=== PATIENT | male | born 1955 | race African-American/Black ===

== ENCOUNTER 2017-02-09 12:31 | Inpatient (IN) | payer MEDICAID ==
[~2017-02-09] VITALS: Ht 185.4 cm; Wt 151.5 kg
[2017-02-09 14:40] LABS: BASOPHILS % 0.7 % (0.0-2.0); HEMOGLOBIN. 10.1 g/dL (14.0-18.0); LYMPHOCYTES % 24.6 % (20.0-50.0); MEAN CORPUSCULAR HEMOGLOBIN 24.8 pg (28.0-32.0); MEAN PLATELET VOLUME 8.1 fl (7.4-10.4); MONOCYTES % 7.1 % (2.0-8.0); NEUTROPHILS % 66.6 % (40.0-76.0); PLATELET 272 x1000/uL (130-400); RED BLOOD CELL COUNT 4.05 mill/uL (4.7-6.1)
[2017-02-09] MEDS ORDERED: ONDANSETRON HCL 4MG/2ML VIAL IV ONE (14:45)
[2017-02-09] MEDS ORDERED: MORPHINE SULFATE 4 MG/ML CPJ (NOT FOR IM USE) IV ONE (14:45)
[2017-02-09 14:48] LABS: INR 1.1; PARTIAL THROMBOPLASTIN TIME 24.1 sec (23.4-31.0); PROTHROMBIN TIME 10.9 sec (9.4-11.6)
[2017-02-09 14:56] LABS: CARBON DIOXIDE 30 mEq/L (21-32); CHLORIDE 108 mEq/L (98-107)
[2017-02-09] MEDS ORDERED: ONDANSETRON HCL 4MG/2ML VIAL IV PRN (15:15)
[2017-02-09] MEDS ORDERED: ACETAMINOPHEN 325MG TABLET PO PRN (15:15)
[2017-02-09] MEDS ORDERED: LORAZEPAM 0.5MG TABLET PO PRN (15:15)
[2017-02-09] MEDS ORDERED: TEMAZEPAM 15MG CAPSULE PO PRN (15:15)
[2017-02-09] MEDS ORDERED: ENOXAPARIN 150MG/ML SYR SUBCUT ONE (16:00)
[2017-02-09] MEDS: HYDROMORPHONE HCL/PF 2MG/ML CPJ IV PRN (22:07)
[2017-02-09 22:35] VITALS: BP 131/71
[2017-02-10 03:10] LABS: CLARITY URINE CLEAR (CLEAR); COLOR URINE YELLOW (YELLOW); GLUCOSE URINE TRACE (NEGATIVE); KETONES URINE NEGATIVE (NEGATIVE); LEUKOCYTE ESTERASE URINE NEGATIVE (NEGATIVE); NITRITE URINE NEGATIVE (NEGATIVE); OCCULT BLOOD URINE NEGATIVE (NEGATIVE); PROTEIN URINE TRACE (NEGATIVE); SPECIFIC GRAVITY URINE 1.029 (1.005-1.030); UROBILINOGEN URINE 0.2 E.U./dL (0.2-1.0)
[2017-02-10 04:00] VITALS: BP 164/85
[2017-02-10 06:01] LABS: BASOPHILS % 0.5 % (0.0-2.0); EOSINOPHILS % 0.7 % (0.0-5.0); HEMATOCRIT. 31.8 % (42.0-52.0); HEMOGLOBIN. 9.7 g/dL (14.0-18.0); LYMPHOCYTES % 25.3 % (20.0-50.0); MEAN CORPUSCULAR HEMOGLOBIN 24.6 pg (28.0-32.0); MEAN CORPUSCULAR VOLUME 80.8 fL (80.0-94.0); MEAN PLATELET VOLUME 8.4 fl (7.4-10.4); NEUTROPHILS % 67.5 % (40.0-76.0); PLATELET 292 x1000/uL (130-400); RED BLOOD CELL COUNT 3.94 mill/uL (4.7-6.1); RED CELL DISTRIBUTION WIDTH 18.8 % (11.6-14.6)
[2017-02-10 06:16] LABS: CARBON DIOXIDE 32 mEq/L (21-32); CHLORIDE 104 mEq/L (98-107)
[2017-02-10] MEDS: ENOXAPARIN 150MG/ML SYR SUBCUT SCH ×2 (06:32→18:44)
[2017-02-10] MEDS: IPRATROPIUM/ALBUTEROL 0.5-3(2.5)MG/3ML NEB HHN SCH ×3 (07:15→21:14)
[2017-02-10 08:00] VITALS: BP 142/77
[2017-02-10] MEDS: HYDROMORPHONE HCL/PF 2MG/ML CPJ IV PRN ×4 (08:18→23:08)
[2017-02-10] MEDS ORDERED: LEVOFLOXACIN 500MG PREMIX 100 ML IV SCH (09:00)
[2017-02-10] MEDS ORDERED: DEXTROSE 50% WATER 50ML SYRINGE IV PRN (10:00)
[2017-02-10 12:31] VITALS: BP 138/75
[2017-02-10] MEDS: BLOOD SUGAR DIAGNOSTIC STRIP TEST SCH ×3 (13:20→20:32)
[2017-02-10] MEDS: INSULIN LISPRO 100 UNITS/ML SUBCUT SCH ×3 (13:27→21:43)
[2017-02-10 15:28] VITALS: BP 145/73
[2017-02-10] MEDS ORDERED: ASPI-986 PO (19:09)
[2017-02-10] MEDS ORDERED: CLOT15CR2 TP (19:09)
[2017-02-10] MEDS ORDERED: DOCU-150 PO (19:09)
[2017-02-10] MEDS ORDERED: FENO145T19 PO (19:09)
[2017-02-10] MEDS ORDERED: BECL8.7H BOTHNSTRLS (19:09)
[2017-02-10] MEDS ORDERED: PRAV40TA58 PO (19:15)
[2017-02-10] MEDS ORDERED: FURO40TA5 PO (19:15)
[2017-02-10] MEDS ORDERED: FOLI-43 PO (19:15)
[2017-02-10] MEDS ORDERED: LOSA100T14 PO (19:15)
[2017-02-10] MEDS ORDERED: NIFE60TA35 PO (19:15)
[2017-02-10] MEDS ORDERED: HYDR-4134 PO (19:15)
[2017-02-10] MEDS ORDERED: MULT-1146 PO (19:15)
[2017-02-10] MEDS ORDERED: LIDO30CR TP (19:15)
[2017-02-10] MEDS ORDERED: METO50TA5 PO (19:15)
[2017-02-10] MEDS ORDERED: GABA-531 PO (19:15)
[2017-02-10] MEDS ORDERED: NYST15OI2 TP (19:15)
[2017-02-10 20:00] VITALS: BP 172/72
[2017-02-10] MEDS ORDERED: HYDRALAZINE HCL 25MG TABLET PO SCH (20:45)
[2017-02-10] MEDS ORDERED: HYDR100T26 PO (21:20)
[2017-02-10] MEDS: HYDRALAZINE HCL 100MG TABLET PO SCH (21:44)
[2017-02-10] MEDS: METOPROLOL TARTRATE 50MG TABLET PO SCH (21:44)
[2017-02-11] VITALS: BP 150/78
[2017-02-11] MEDS: IPRATROPIUM/ALBUTEROL 0.5-3(2.5)MG/3ML NEB HHN SCH ×6 (01:42→20:29)
[2017-02-11] MEDS: HYDROMORPHONE HCL/PF 2MG/ML CPJ IV PRN ×5 (02:53→20:33)
[2017-02-11 04:00] VITALS: BP 138/67
[2017-02-11 05:22] LABS: BASOPHILS % 0.6 % (0.0-2.0); EOSINOPHILS % 1.4 % (0.0-5.0); HEMATOCRIT. 30.5 % (42.0-52.0); HEMOGLOBIN. 9.3 g/dL (14.0-18.0); LYMPHOCYTES % 27.9 % (20.0-50.0); MEAN CORPUSCULAR HEMOGLOBIN 24.5 pg (28.0-32.0); MEAN CORPUSCULAR VOLUME 80.5 fL (80.0-94.0); MEAN PLATELET VOLUME 8.5 fl (7.4-10.4); MONOCYTES % 6.5 % (2.0-8.0); NEUTROPHILS % 63.6 % (40.0-76.0); PLATELET 261 x1000/uL (130-400); RED BLOOD CELL COUNT 3.79 mill/uL (4.7-6.1); RED CELL DISTRIBUTION WIDTH 18.4 % (11.6-14.6)
[2017-02-11] MEDS: ENOXAPARIN 150MG/ML SYR SUBCUT SCH (05:53)
[2017-02-11 08:00] VITALS: BP 141/81
[2017-02-11] MEDS: METOPROLOL TARTRATE 50MG TABLET PO SCH ×2 (08:33→20:31)
[2017-02-11] MEDS: HYDRALAZINE HCL 100MG TABLET PO SCH ×2 (08:33→20:31)
[2017-02-11] MEDS: NIFEDIPINE XL 60MG TAB PO SCH (08:33)
[2017-02-11] MEDS: LOSARTAN POTASSIUM 100 MG TABLET PO SCH (08:34)
[2017-02-11] MEDS: BLOOD SUGAR DIAGNOSTIC STRIP TEST SCH ×4 (08:35→20:32)
[2017-02-11] MEDS: INSULIN LISPRO 100 UNITS/ML SUBCUT SCH ×4 (08:41→20:32)
[2017-02-11] MEDS: LEVOFLOXACIN 500MG PREMIX 100 ML IV SCH (09:24)
[2017-02-11] MEDS: DOCUSATE SODIUM 100MG CAPSULE PO SCH (10:40)
[2017-02-11] MEDS: MULTIVITAMINS,THER W-MINERALS TABLET PO SCH (10:41)
[2017-02-11] MEDS: FOLIC ACID 1MG TABLET PO SCH (10:41)
[2017-02-11] MEDS: FUROSEMIDE 40MG TABLET PO SCH (10:41)
[2017-02-11] MEDS ORDERED: LIDOCAINE HCL/PF 1% 2ML VIAL ONE (11:08)
[2017-02-11 11:29] VITALS: BP 137/65
[2017-02-11] MEDS: LIDOCAINE HCL 4% CREAM 76GM TUBE TP SCH ×2 (12:11→20:33)
[2017-02-11] MEDS: CLOTRIMAZOLE 1% CREAM 30GM TOP SCH ×2 (12:12→20:32)
[2017-02-11] MEDS: GABAPENTIN 300MG CAPSULE PO SCH ×2 (12:14→16:00)
[2017-02-11 12:15] LABS: BG CARBOXYHEMOGLOBIN 0.9 % (0.5-1.5); BG DEOXYHEMOGLOBIN 10.2 % (0.0-5.0); BG FRACTION INSPIRED OXYGEN 21; BG HCO3 ACT 36.7 mmol/L (22.0-26.0); BG METHEMOGLOBIN 0.2 % (0.0-1.5); BG OXYGEN SATURATION 89.7 % (92.0-98.5); BG OXYHEMOGLOBIN 88.7 % (94.0-97.0); BG PCO2 54.2 mmHg (35.0-45.0); BG PH 7.449 (7.350-7.450); BG PO2 55.1 mmHg (75.0-100.0); BG SAMPLE SITE LEFT RADIAL; BG TOTAL HEMOGLOBIN 11.2 g/dL (12.0-18.0); BG VENT MODE ROOM AIR
[2017-02-11 15:56] VITALS: BP 133/75
[2017-02-11] MEDS: APIXABAN 5 MG TABLET PO SCH (16:00)
[2017-02-11 20:19] VITALS: BP 136/71
[2017-02-11] MEDS ORDERED: TEMAZEPAM 15MG CAPSULE PO PRN (21:00)
[2017-02-12] VITALS (7 sets, daily range): BP systolic 106–138; BP diastolic 53–80
[2017-02-12] MEDS: IPRATROPIUM/ALBUTEROL 0.5-3(2.5)MG/3ML NEB HHN SCH ×5 (00:37→16:22)
[2017-02-12] MEDS: HYDROMORPHONE HCL/PF 2MG/ML CPJ IV PRN ×3 (04:00→18:00)
[2017-02-12 06:35] LABS: BASOPHILS % 0.4 % (0.0-2.0); HEMATOCRIT. 31.1 % (42.0-52.0); HEMOGLOBIN. 9.8 g/dL (14.0-18.0); LYMPHOCYTES % 25.8 % (20.0-50.0); MEAN CORPUSCULAR VOLUME 79.4 fL (80.0-94.0); MEAN PLATELET VOLUME 8.5 fl (7.4-10.4); MONOCYTES % 6.9 % (2.0-8.0); NEUTROPHILS % 64.9 % (40.0-76.0); PLATELET 274 x1000/uL (130-400); RED BLOOD CELL COUNT 3.92 mill/uL (4.7-6.1); RED CELL DISTRIBUTION WIDTH 18.1 % (11.6-14.6)
[2017-02-12 06:51] LABS: CARBON DIOXIDE 35 mEq/L (21-32); CHLORIDE 100 mEq/L (98-107)
[2017-02-12] MEDS: BLOOD SUGAR DIAGNOSTIC STRIP TEST SCH ×3 (07:40→17:40)
[2017-02-12] MEDS: LEVOFLOXACIN 500MG PREMIX 100 ML IV SCH (08:28)
[2017-02-12] MEDS: FUROSEMIDE 40MG TABLET PO SCH (08:28)
[2017-02-12] MEDS: LOSARTAN POTASSIUM 100 MG TABLET PO SCH (08:28)
[2017-02-12] MEDS: METOPROLOL TARTRATE 50MG TABLET PO SCH (08:28)
[2017-02-12] MEDS: NIFEDIPINE XL 60MG TAB PO SCH (08:28)
[2017-02-12] MEDS: HYDRALAZINE HCL 100MG TABLET PO SCH (08:29)
[2017-02-12] MEDS: DOCUSATE SODIUM 100MG CAPSULE PO SCH (08:29)
[2017-02-12] MEDS: APIXABAN 5 MG TABLET PO SCH ×2 (08:54→17:26)
[2017-02-12] MEDS: MULTIVITAMINS,THER W-MINERALS TABLET PO SCH (08:54)
[2017-02-12] MEDS: GABAPENTIN 300MG CAPSULE PO SCH ×3 (08:55→17:26)
[2017-02-12] MEDS: FOLIC ACID 1MG TABLET PO SCH (08:55)
[2017-02-12] MEDS: INSULIN LISPRO 100 UNITS/ML SUBCUT SCH ×3 (08:56→17:49)
[2017-02-12] MEDS: CLOTRIMAZOLE 1% CREAM 30GM TOP SCH ×2 (08:57→15:00)
[2017-02-12] MEDS: LIDOCAINE HCL 4% CREAM 76GM TUBE TP SCH (08:57)
[2017-02-12] MEDS ORDERED: FENOFIBRATE NANOCRYSTALLIZED 145MG TABLET PO SCH (09:00)
[2017-02-12] MEDS ORDERED: SORBITOL 70% SOLN 30ML PO SCH (12:30)
== END 2017-02-12 20:25 | disposition home or self-care (01) | DRG 197 ==
LOC: ER 12:47 → EDBEDREQ 14:48 → EDBEDREQSVC 14:48 → 7WST 14:51 → EDBEDREQ 16:21 → ENRESERV 21:42 → 7WST 02-11 01:04
PROVIDERS: ADMIT Internal Medicine Geriatric Medicine; ATTEND Internal Medicine Geriatric Medicine
PROC: 5A09357 Assistance with Respiratory Ventilation, Less than 24 Consecutive Hours, Continuous Positive Airway Pressure (ICD-10-PCS; principal; 2017-02-12)
DX: I82.411 Acute embolism and thrombosis of right femoral vein (principal); R65.10 Systemic inflammatory response syndrome (SIRS) of non-infectious origin without acute organ dysfunction; I82.431 Acute embolism and thrombosis of right popliteal vein; E11.65 Type 2 diabetes mellitus with hyperglycemia; Z68.41 Body mass index [BMI] 40.0-44.9, adult; I10 Essential (primary) hypertension; D63.8 Anemia in other chronic diseases classified elsewhere; G47.33 Obstructive sleep apnea (adult) (pediatric); E66.01 Morbid (severe) obesity due to excess calories; Z74.01 Bed confinement status; Z88.0 Allergy status to penicillin
CPT/HCPCS: 36415; 36600; 71010; 73502; 80048; 81001; 82270; 82375; 82805; 82962; 83880; 85025; 85610; 85730; 93005; 93970; 94640; 94660; 94664; 96372; 96374; 96375; 99291; J1170; J1650; J1815; J1956; J2270; J2405; J3490; J7050; J7620